=== PATIENT | female | born 1995 | race Caucasian/White ===

== ENCOUNTER 2021-01-03 10:08 | Emergency (ER) | payer OTHER, SELFPAY ==
--- NOTE | 2021-01-03 10:14 | ED.EYEPROB ---
HPI - Eye Problem General Chief complaint: Eye Problems Stated complaint: eye pain Time Seen by Provider: 01/03/21 10:14 Source: patient and RN notes reviewed History of Present Illness HPI Narrative: Patient is a 25-year-old female who presents the urgent care with complaints of redness and pain to the left eye. Patient states that she woke up in the middle of the night with some pain and drainage from the eye. Patient states that she does wear contacts and has been wearing the 2-week contacts for approximately 3 weeks. Patient states she did throw them out. Denies of any use of [id number] medication for her symptoms but does take daily Zyrtec. Patient denies of any other upper respiratory symptoms. Denies of any trauma or injury to the eye. Denies any vision changes. No other acute complaints. No acute distress noted. Patient aware of the plan of care. Some parts of this dictation were generated by voice recognition software and may contain typographical and/or grammatical inaccuracies. Related Data Home Medications Medication Instructions Recorded Confirmed cetirizine [Zyrtec] 10 mg PO DAILY 01/03/21 01/03/21 Allergies Allergy/AdvReac Type Severity Reaction Status Date / Time levonorgestrel AdvReac Intermediate extreme Verified 01/03/21 10:20 irritability Review of Systems Review of Systems: CONSTITUTIONAL: Denies fever, chills, or sweats. EYES: Report redness and clear drainage to the left eye ENT: Denies rhinorrhea, congestion, sore throat, or otalgia. CARDIOVASCULAR: Denies chest pain, palpitations, or edema. RESPIRATORY: Denies cough or dyspnea. GASTROINTESTINAL: Denies abdominal pain, nausea, vomiting, or diarrhea. GENITOURINARY: Denies dysuria or hematuria. SKIN: Denies rash or itching. MUSCULOSKELETAL: Denies back pain, joint pain, or myalgia. NEUROLOGIC: Denies headache, numbness, or weakness. All other systems reviewed are negative, except as documented in HPI. [facility] Surgical History Surgical History History of placement of ear tubes (~2002) placement in 2005 as well History of removal of skin mole (~2009) Hx of appendectomy (~08/08/15) Family History Family History Mother Diabetes mellitus Hypertension Father Family history of prostate cancer Social History Social History Smoking packs per day: 0 Smoking cigarettes per day: 0.0 Smoking status: Never smoker Alcohol intake: current Drinks per week: 2 Substance use: never Comments At the time of my signature, I reviewed and agree with the nursing past medical, surgical, social, and family history. There is no relevant family history pertinent to the patient complaint. Exam Narrative: GENERAL: This is a well-nourished, well-developed patient, in no apparent distress. HEAD: normocephalic, atraumatic. EYES: PERRL. Sclera clear/white. Vision is grossly intact. EARS: External ears normal, auditory canals clear and without drainage, TMs normal without perforation. Hearing grossly intact. NOSE: External nose normal with no obvious nasal discharge, nares without redness, no rhinorrhea. THROAT: Mucous membranes moist, posterior pharynx clear. NECK: Neck supple, non-tender without lymphadenopathy, masses or thyromegaly. CARDIOVASCULAR: Regular rate and rhythm without murmurs, gallops, or rubs. RESPIRATORY: Clear to auscultation. Breath sounds equal bilaterally. No wheezes, rales, or rhonchi. GASTROINTESTINAL: Abdomen soft, non-tender, nondistended. Bowel sounds are active. No hepato-splenomegaly, or palpable masses. No guarding. SKIN: warm, intact with no suspicious lesions or rash, good texture and turgor. NEURO: awake, alert, and oriented to person, place and time. There were no obvious focal neurologic abnormalities. EXTREMITIES: No clubbing, cyanosis, or edema. C
[2021-01-03 10:21] VITALS: BP 108/59; PULSE 66; RESP 16; TEMP 37.3
== END 2021-01-03 10:34 | disposition home or self-care (01) ==
PROVIDERS: Emergency Provider Nurse Practitioner Family; PCP Family Medicine
DX: H10.9 Unspecified conjunctivitis (principal)
CPT/HCPCS: 99213; G0463

== ENCOUNTER 2023-11-24 16:20 | Emergency (ER) | payer OTHER, SELFPAY ==
--- NOTE | ~2023-11-24 | US_ITS ---
US pelvic complete w TV Ordering provider: Annia Urias PA-C History: . LLQ /lower back pain, ovarian cyst, r/o torsion . Comparison: None. Technique: Transabdominal and endovaginal ultrasound of the pelvis (Doppler ultrasound interrogation techniques used as needed for this exam.) FINDINGS: CERVIX: Normal. UTERUS: Measures 6.8x 3.2x 4.1 cm in length which is within normal limits and is anteverted. No myom etrial masses. ENDOMETRIUM: Normal in thickness measuring 5.5 mm. CUL DE SAC: Minimal free fluid. RIGHT OVARY: Normal in size measuring 1.7x 1.9x 2.1 cm. Normal echotexture. Doppler vascular flow pre sent. LEFT OVARY: Normal in size measuring 4.2x 3.1x 3.3 cm. Normal echotexture. Doppler vascular flow pres ent. Cyst measuring 3.5 x 2.7 x 2.9 cm. ADNEXA: Normal. No mass. IMPRESSION: No definite evidence of torsion. Clinical correlation advised. Left ovarian cyst. Otherwise, normal p elvic ultrasound. Reviewed, dictated and finalized at location A. IMPRESSION: No definite evidence of torsion. Clinical correlation advised. Left ovarian cys t. Otherwise, normal pelvic ultrasound.
--- NOTE | ~2023-11-24 | CT_ITS ---
CT abdomen pelvis wo con Ordering provider: Annia Urias PA-C History: . L flank pain . Comparison: August 07, 2015 Technique: CT abdomen without IV and without oral contrast. Radiation reduction technique utilized. D LP is 295.65 mGy. Findings: VISUALIZED LOWER CHEST: Normal. UPPER ABDOMINAL ORGANS: Liver: Normal. Gallbladder: Normal. Spleen: Normal. Stomach/duodenum: Normal. Pancreas: Normal. Adrenals: Normal. Kidneys: Normal. Urinary bladder: Normal. Uterus: Normal. Left ovarian cyst is seen measuring 2.2 cm. VISUALIZED BOWEL AND MESENTERY: Fecal material is loaded in the colon suggestive of constipation. The appendix is not well demonstrated. No evidence of appendicitis seen The bowel is otherwise normal. N o free air or free fluid. No mesenteric lymphadenopathy. RETROPERITONEUM: Normal aorta. No retroperitoneal lymphadenopathy. MUSCULOSKELETAL: The superficial soft tissues are normal. Normal spine. IMPRESSION: No acute abdominal process. No evidence of appendicitis, diverticulitis or intestinal obstruction. Constipation. Reviewed, dictated and finalized at location A. IMPRESSION: No acute abdominal process. No evidence of appendicitis, diverticulitis or inte stinal obstruction. Constipation.
--- NOTE | ~2023-11-24 | XR_ITS ---
XR chest 2V Ordering provider: Kristen Alvarez APRN History: 27 years Female with . chest wall pain . Comparison: None. FINDINGS: MEDIASTINUM: The cardiac silhouette is not enlarged. LUNGS: No infiltrates, effusions or pneumothorax. Small opacity measuring 1 cm. in the right lower lobe most likely nipple shadow. Repeat exam with nip ple marker is advised. OTHER: No free air under the diaphragm. IMPRESSION: No acute cardiopulmonary pathology. Reviewed, dictated and finalized at location A.
[2023-11-24 16:27] VITALS: BP 117/64; PULSE 85; RESP 19; TEMP 36.4; O2SAT 100
[2023-11-24 16:51] LABS: Appearance Urine Clear (Clear); Bilirubin Urine Negative (Negative); Blood Urine Negative (Negative); Color Urine Yellow (Yellow); Glucose Urine UA Negative (Negative); Ketones Urine Negative (Negative); Leukocyte Esterase Ur Negative LEU/UL (Negative); Nitrate Urine Negative (Negative); Protein Urine Negative (Negative); Specific Grav Ur 1.034 (1.001-1.035); pH Urine 5.5 (5.0-9.0)
[2023-11-24 16:52] LABS: Add Urine Microscopic? NO
--- NOTE | 2023-11-24 17:16 | ED.GENADULT ---
HPI - General Adult General Chief complaint: Back Pain/Injury <Kristen Menjivar September, STAFFING MANAGER - Last Filed: 11/24/23 17:23> Stated complaint: flank pain <Kristen Menjivar September, STAFFING MANAGER - Last Filed: 11/24/23 17:23> Time Seen by Provider: 11/24/23 17:17 <Kristen Menjivar September, STAFFING MANAGER - Last Filed: 11/24/23 17:23> Focused HPI: Sofi Morales is a 27 y/o female who presents with reports of having severe left flank pain that started at around 1100, She states it started as sharp and now it is dull. pain is at a 5/10, No known injury or trauma she states she is concerned for a kidney stone. Denies any changes to urine / Last BM was today normal / + nausea no vomiting / she states taking deep breaths makes it worse more Pain is favored posterior lower chest wall area GENERAL: Well-appearing, well-nourished, and in no acute distress. HEAD: Normocephalic, atraumatic. CHEST: Clear to auscultation. ?No respiratory distress. HEART: Regular rate and rhythm.? NEURO: ?Alert and oriented x3. Patient screened in triage and initial orders placed.? ?Additional care and disposition to be based upon?diagnostic testing and treatment. <Kristen Menjivar September, STAFFING MANAGER - Last Filed: 11/24/23 17:23> Focused HPI: Sofi Morales is a 27 y/o female who presents with reports of having severe left flank pain that started at around 1100, She states it started as sharp and now it is dull. pain is at a 5/10, No known injury or trauma she states she is concerned for a kidney stone. Denies any changes to urine / Last BM was today normal / + nausea no vomiting / she states taking deep breaths makes it worse more Pain is favored posterior lower chest wall area GENERAL: Well-appearing, well-nourished, and in no acute distress. HEAD: Normocephalic, atraumatic. CHEST: Clear to auscultation. ?No respiratory distress. HEART: Regular rate and rhythm.? NEURO: ?Alert and oriented x3. Patient screened in triage and initial orders placed.? ?Additional care and disposition to be based upon?diagnostic testing and treatment. <Annia Urias PA-C - Last Filed: 11/25/23 00:53> Source: patient <Annia Urias PA-C - Last Filed: 11/25/23 00:53> Mode of arrival: ambulatory <Annia Urias PA-C - Last Filed: 11/25/23 00:53> Limitations: no limitations <Annia Urias PA-C - Last Filed: 11/25/23 00:53> History of Present Illness HPI narrative: Agree w/ above HPI. Reports FHx of kidney stones. No personal hx. Denies any recent heavy lifting or strenuous activity. <Annia Urias PA-C - Last Filed: 11/25/23 00:53> Related Data Home medications: Home Medications Medication Instructions Recorded Confirmed cetirizine 10 mg tablet (Zyrtec) 10 mg PO DAILY 01/03/21 01/03/21 <Kristen Alvarez, STAFFING MANAGER - Last Filed: 11/24/23 17:23> Allergies/adverse reactions: Allergies Allergy/AdvReac Type Severity Reaction Status Date / Time levonorgestrel AdvReac Intermediate extreme Verified 11/24/23 16:22 irritability <Kristen Alvarez, STAFFING MANAGER - Last Filed: 11/24/23 17:23> Review of Systems Review of Systems: CONSTITUTIONAL: Denies fever, chills, or sweats. GASTROINTESTINAL: Denies abdominal pain, nausea, vomiting, or diarrhea. GENITOURINARY: Denies dysuria or hematuria. MUSCULOSKELETAL: See HPI. <Annia Urias PA-C - Last Filed: 11/25/23 00:53> All systems reviewed & are unremarkable except as noted in HPI and below <Annia Urias PA-C - Last Filed: 11/25/23 00:53> [facility] Surgical History Surgical History: Surgical History History of placement of ear tubes (~2002) placement in 2005 as well History of removal of skin mole (~2009) Hx of appendectomy (~08/08/15) <Kristen Alvarez, STAFFING MANAGER - Last Filed: 11/24/23 17:23> Family History Family History: Family History Mother Diabetes mellit
[2023-11-24 18:10] LABS: Pregnancy On Board Control Positive; Urine Pregnancy Test Negative
[2023-11-24 18:12] LABS: Basophils Percent Auto 0.5 % (0.2-1.2); Eosinophils Absolute Auto 0.2 K/mm3 (0-0.3); Eosinophils Percent Auto 2.7 % (0-4.4); Hemoglobin 13.9 g/dL (12.0-15.0); Immature Granulocyte Absolute 0.02 K/mm3 (0.00-0.031); Immature Granulocyte Percent A 0.3 % (0-0.5); Lymphocytes Absolute Auto 2.41 K/mm3 (0.9-3.2); Lymphocytes Percent Auto 32.5 % (18.3-44.2); Mean Corpuscular HGB Conc 34.8 g/dl (32-36); Mean Corpuscular Hemoglobin 31.5 pg (26-34); Mean Corpuscular Volume 90.7 fl (80-100); Mean Platelet Volume 8.5 fl (7.4-10.4); Monocytes Absolute Auto 0.6 K/mm3 (0.1-0.6); Monocytes Percent Auto 8.4 % (2.6-8.5); Neutrophils Absolute Auto 4.1 K/mm3 (1.3-6.7); Neutrophils Percent Auto 55.6 % (45.5-73.1); Platelet Count Result 287 k/mm3 (150-375); Red Blood Count 4.41 M/mm3 (4.2-5.4); Red Cell Distribution Width 12.1 % (11.5-14.5); White Blood Count 7.4 K/mm3 (4.5-10.0)
[2023-11-24 18:25] LABS: Alanine Aminotransferase 13 U/L (6-35); Albumin Level 4.5 g/dL (3.5-5.1); Alkaline Phosphatase 39 U/L (38-126); Anion Gap 8 mmol/L (4-12); Aspartate Amino Transferase 22 U/L (14-36); Bilirubin,Total 0.3 mg/dL (0.2-1.3); Blood Urea Nitrogen 21 mg/dL (7-17); Carbon Dioxide 25 mmol/L (22-30); Chloride 105 mmol/L (98-107); Estimated CRCL calculation 110 ml/min; Estimated Glomerular Filt Rate > 60; Glucose 85 mg/dL (65-110); Potassium 4.1 mmol/L (3.4-5.0); Sodium 138 mmol/L (137-145)
[2023-11-24] MEDS: KETOROLAC (*BKC) 60 MG/2 ML VIAL IM (19:26)
[2023-11-24] MEDS: CYCLOBENZAPRINE HCL 5 MG TABLET PO (19:26)
[2023-11-24] MEDS: ACETAMINOPHEN 500 MG TABLET 1000 MG PO (19:26)
[2023-11-24 23:21] VITALS: BP 112/60; PULSE 66; RESP 20; O2SAT 99
== END 2023-11-24 23:22 | disposition home or self-care (01) ==
PROVIDERS: Emergency Medicine; Nurse Practitioner Family; Emergency Provider Physician Assistant
DX: N83.202 Unspecified ovarian cyst, left side (principal)
CPT/HCPCS: 36415; 71046; 74176; 76830; 76856; 80053; 81003; 81025; 85025; 85380; 96372; 99284; A9270; J1885